=== PATIENT | female | born 1970 | race Two or more races ===

== ENCOUNTER 2025-09-26 08:19 | Day surgery (SDC) | payer MEDICAID ==
[2025-09-21 11:56] LABS: Hematocrit 37.6 % (36.0-46.0); Hemoglobin 12.8 g/dL (12.2-16.2); Mean Corpuscular Hemoglobin 33.2 pg (28.0-32.0); Mean Corpuscular Volume 97.1 fL (80.0-100.0); Nucleated Red Blood Cells % 0.1 %
[2025-09-21 12:11] LABS: INR 0.97 (0.9-1.15); Partial Thromboplastin Time 26.7 SEC (24.5-34.5); Prothrombin Time 10.3 sec (9.3-11.8)
[2025-09-21 12:51] LABS: Urine Protein, UAD Negative (Negative)
[2025-09-21 13:00] LABS: Alanine Aminotransferase 15 U/L (7-40); Albumin 4.4 g/dL (3.2-4.8); Alkaline Phosphatase 89 U/L (46-116); Anion Gap 8 (5-15); BUN/Creatinine Ratio 25.0 (10.0-20.0); Blood Urea Nitrogen 18 mg/dL (9-23); Calcium 9.7 mg/dL (8.7-10.4); Carbon Dioxide 29 mmol/L (20-31); Chloride 106 mmol/L (98-107); Glucose 84 mg/dL (74-106); Potassium 4.1 mmol/L (3.5-5.1); Sodium 143 mmol/L (136-145); Total Protein 7.2 g/dL (5.7-8.2)
[2025-09-21 13:01] LABS: Bilirubin, Total 0.5 mg/dL (0.2-1.0)
[~2025-09-26] VITALS: Ht 165.1 cm; Wt 88.5 kg
[~2025-09-26 08:19] MED LIST: ATOR10TA PO; CHOL20004 PO; MAGN400T40 OR; MELO15TA29 PO; PREG150C PO
[2025-09-26] MEDS ORDERED: LIDOCAINE 1% INJ PF 5ML AMP ONE (09:13)
[2025-09-26] MEDS ORDERED: MIDAZOLAM HCL 2MG/2ML 2ml VIAL (1mg/ml) ONE (09:13)
[2025-09-26] MEDS ORDERED: ONDANSETRON HCL 4 MG/2 ML VIAL ONE (09:13)
[2025-09-26] MEDS ORDERED: PROPOFOL 10 MG/ML 20 ML IV ONE (09:13)
[2025-09-26] MEDS ORDERED: MEPERIDINE HCL (25 MG/ML) 1ML VIAL ONE (09:13)
[2025-09-26] MEDS ORDERED: SODIUM CHLORIDE LOCK 10 ML ONE (09:13)
[2025-09-26] MEDS ORDERED: KETAMINE 50mg/ML 1ml syringe ONE (09:13)
[2025-09-26] MEDS: ceFAZolin 2 GM/D5W50ml 50 ML IV ONE (09:58)
[2025-09-26] MEDS: LIDOCAINE 1% HCL (LOCAL ANESTH.) INJ 20ML MDV ONE (10:03)
[2025-09-26 10:13] VITALS: PULSE 73; RESP 22; TEMP 97.6; O2SAT 99
--- NOTE | 2025-09-26 10:13 | DVHOP2 ---
Operative Report - 2 Report Details Date: 09/26/25 Preop Diagnosis: 1. Right foot plantar fasciitis 2. Right foot bone spur 3. Left foot plantar fasciitis 4. Left foot bone spur 5. Bilateral foot pain Postop Diagnosis: Same as preop Surgeon: Olena Pablo MD Anesthesiologist: See anesthesia Anesthesia: Mac Consent: The patient was informed of the risks and benefits of the procedure. These include but are not limited to complications of anesthesia, postoperative infection, incomplete relief of symptoms, recurrence of symptoms, damage to blood vessels, nerves and tendons, deep venous thrombosis, pulmonary embolism and possible need for repeat surgery in the future. Complications: None Estimated Blood Loss: Minimal Fluids: See anesthesia Findings: Consistent with diagnosis Indications for Surgery: Worsening bilateral foot pain Name of Procedure Performed 1. Right foot plantar fasciotomy (21241) 2. Right foot bone spur excision (87714) 3. Left foot plantar fasciotomy (83470) 4. Left foot bone spur excision (00396) Procedure Details Procedure Details: PRE-PROCEDURE INFORMATION: In the pre-op holding area, the extremity to be operated on was clearly marked and the patient verified correct laterality of the marking. The patient was transferred to the OR table and placed in a supine position. A timeout was performed in which identification of the correct patient, procedure, location, and materials was done. The bilateral foot and leg were prepped and draped in normal sterile fashion. DESCRIPTION OF PROCEDURE: Attention was directed to the right medial aspect of the heel. Using a 15. Blade, a small stab incision was made. Using a hemostat the incision was deepened to the level of the plantar fascia and bone. Using a Tenex device, and ultrasound, the device was used to break up the scar tissue. Using a power rasp, the heel spur was then excised. After adequate debridement of the plantar fascia, it was noted on ultrasound that the thickness of the plantar fascia had improved. Attention was directed to the left medial aspect of the heel. Using a 15. Blade, a small stab incision was made. Using a hemostat the incision was deepened to the level of the plantar fascia and bone. Using a Tenex device, and ultrasound, the device was used to break up the scar tissue. Using a power rasp, the heel spur was then excised. After adequate debridement of the plantar fascia, it was noted on ultrasound that the thickness of the plantar fascia had improved All surgical wounds were irrigated copiously with saline and closed in layers with the aforementioned suture material. A dry sterile dressing was placed on the surgical extremity. The patient was placed in a postop shoe POSTOPERATIVE INFORMATION: The patient tolerated the above noted procedure and anesthesia well and was transferred to the PACU with vital signs stable, and vascular status intact with capillary refill intact to all digits. Postoperative instructions reviewed in detail with the patient with written instructions provided. Patient will return to clinic in approximately 10-14 days for first p ostoperative visit. Patient has the number of the clinic and was instructed to call prior to that time should any problems, questions, or concerns arise. Condition Good Disposition Home Visit Coding Podiatry Date of Service if different f: Sep 26, 2025 Billing Provider: OLENA PABLO DPM Podiatry Common Visit Codes: PROCEDURE ONLY OLENA PABLO DPM Sep 26, 2025 10:13
[2025-09-26] MEDS ORDERED: METOCLOPRAMIDE HCL 5MG/ml INJ 2ml VIAL IV PRN (10:15)
[2025-09-26] MEDS ORDERED: HYDROmorphone HCL 2 MG/ML VL/or syr IV PRN (10:15)
[2025-09-26] MEDS ORDERED: MORPHINE SULFATE INJ 2 MG/ml SYRG IV PRN (10:15)
[2025-09-26] MEDS ORDERED: MORPHINE SULFATE 4 MG/ML SYR/VIAL IV PRN (10:15)
[2025-09-26 10:25] VITALS: PULSE 64; RESP 11; O2SAT 99
[2025-09-26] MEDS: KETOROLAC TROMETH 30 MG/ML 1ML VIAL IV ONE (10:28)
[2025-09-26] MEDS: HYDROmorphone HCL 2 MG/ML VL/or syr IV PRN (10:52)
[2025-09-26 11:20] VITALS: BP 136/81; PULSE 59; RESP 11; O2SAT 97
== END 2025-09-26 11:30 | disposition home or self-care (01) ==
LOC: SUR 08:19
PROVIDERS: ATTEND Podiatrist
DX: M72.2 Plantar fascial fibromatosis (principal); M25.471 Effusion, right ankle; M77.50 Other enthesopathy of unspecified foot and ankle; M77.8 Other enthesopathies, not elsewhere classified; M19.90 Unspecified osteoarthritis, unspecified site; Z79.899 Other long term (current) drug therapy; Z98.890 Other specified postprocedural states
CPT/HCPCS: 28899; 36415; 80053; 81001; 85025; 85610; 85730; J0690; J1171; J1885; J2003; J2175; J2250; J2405; J2704; L3260